=== PATIENT | male | born 1980 | race Caucasian/White ===

== ENCOUNTER 2024-09-22 11:30 | Emergency (ER) | payer MEDICAID, SELFPAY ==
[2024-09-22] VITALS (27 sets, daily range): BP systolic 116–134; BP diastolic 72–98; PULSE 71–107; RESP 14–21; TEMP 37.1; O2SAT 91–99
--- NOTE | ~2024-09-22 | US_ITS ---
EXAMINATION: US venous doppler UE RT DATE: 09/22/2024 14:09 INDICATION: Right upper limb swelling. TECHNIQUE: Grayscale ultrasound images without and with compression and Doppler ultrasound images of the right upper extremity veins were obtained. COMPARISON: None. FINDINGS: The visualized portions of the right internal jugular vein, radial vein, and ulnar vein are patent. T here is thrombus in the right subclavian, axillary, brachial, basilic, and cephalic veins. IMPRESSION: 1. Deep vein thrombosis involving the right subclavian, axillary, and brachial veins. 2. Superficial vein thrombosis involving the right basilic and cephalic veins. Reviewed, dictated and finalized at location A. [employer]
--- OUTSIDE RECORDS SUMMARY | 2024-09-22 14:24 | XMS_ITS | Continuity of Care Document ---
Author Organization [facility] ([facility]) Immunizations Effective Date Vaccine Code Vaccine Name Status Inform ant 10/04/2020 07:00:00 PDT 208 - completed C AIR
--- NOTE | 2024-09-22 14:26 | ED.GENADULT ---
HPI - General Adult General Chief complaint: Extremity Injury, Upper Stated complaint: swollen arm Time Seen by Provider: 09/22/24 13:24 History of Present Illness HPI narrative: Patient is a 44-year-old male who presents ER with swelling to the right arm. Worsening over last 5 days. Recently went fishing but denies any trauma or injury. He only fished for about an hour and was doing some side arm casting. No other trauma. Patient in town in [place] and has been here for several weeks as he is visiting his girlfriend. He drove here. No history of blood clots. Reports his arm swelling to the point that has difficulty bending at the elbow to put food in his mouth. Related Data Allergies Allergy/AdvReac Type Severity Reaction Status Date / Time No Known Allergies Allergy Verified 09/22/24 11:31 [facility] Past Medical History Medical History (Updated 09/22/24 @ 19:22 by Darin Patricio MD) Healthy adult male Surgical History Surgical History (Updated 09/22/24 @ 19:23 by Darin Patricio MD) No pertinent past surgical history Exam Narrative: GENERAL: Well-appearing, well-nourished, and in no acute distress. HEAD: Normocephalic, atraumatic. ENT: Mucous membranes moist. NECK: Supple. CHEST: Clear to auscultation. No respiratory distress. HEART: Regular rate and rhythm. Normal peripheral pulses. ABDOMEN: Soft, nontender, nondistended. EXTREMITIES: Normal range of motion. Edematous right upper extremity from shoulder to the hand with bulging veins near the deltoid. Normal left upper extremity.. SKIN: Warm, dry, no rash. NEURO: Alert and oriented x3. PSYCH: Normal mood and affect. Course Course Emergency Course: Discussed with Dr. Atkins at [facility]. Happy to accept but pt will need a surgery at [facility] for likely thoracic outlet issues. Discussed with Dr. Weston at [facility], feels patient is ok going to [facility] and he can see the patient in clinic for possible surgery 1 month after thrombolysis. His clinic number is [phone]. Patient accepted by the hospitalist Dr. Mccoy at [facility] at [id number]. Vital Signs Vital signs: Vital Signs Temperature 98.7 F 09/22/24 11:47 Pulse Rate 107 H 09/22/24 11:47 Respiratory Rate 19 09/22/24 11:47 Blood Pressure 134/98 H 09/22/24 11:47 Pulse Oximetry 99 09/22/24 11:47 Oxygen Delivery Room Air 09/22/24 11:47 Temperature 98.7 F 09/22/24 11:47 Pulse Rate 83 09/22/24 18:01 Respiratory Rate 16 09/22/24 18:01 Blood Pressure 125/83 09/22/24 18:01 Pulse Oximetry 94 09/22/24 18:15 Oxygen Delivery Room Air 09/22/24 11:47 Medical Decision Making Vital Signs Vital Signs: Vital Signs Temperature 98.7 F 09/22/24 11:47 Pulse Rate 107 H 09/22/24 11:47 Respiratory Rate 19 09/22/24 11:47 Blood Pressure 134/98 H 09/22/24 11:47 Pulse Oximetry 99 09/22/24 11:47 Oxygen Delivery Room Air 09/22/24 11:47 Temperature 98.7 F 09/22/24 11:47 Pulse Rate 83 09/22/24 18:01 Respiratory Rate 16 09/22/24 18:01 Blood Pressure 125/83 09/22/24 18:01 Pulse Oximetry 94 09/22/24 18:15 Oxygen Delivery Room Air 09/22/24 11:47 Lab Data 09/22/24 14:22 09/22/24 14:22 Labs: Lab Results 09/22/24 09/22/24 09/22/24 Range/Units 14:22 14:22 14:22 WBC 8.8 (4.5-10.0) K/mm3 RBC 4.47 L (4.6-6.20) M/mm3 Hgb 14.6 (14.0-18.0) g/dL Hct 43.1 (42.0-52.0) % MCV 96.4 (80-100) fl MCH 32.7 (26-34) pg MCHC 33.9 (32-36) g/dl RDW 12.6 (11.5-14.5) % Plt Count 310 (150-375) k/mm3 MPV 8.9 (7.4-10.4) fl Immature Gran % (Auto) 0.3 (0-0.5) % Neut % (Auto) 68.3 (45.5-73.1) % Lymph % (Auto) 15.5 L (18.3-44.2) % Schley % (Auto) 12.2 H (2.6-8.5) % Eos % (Auto) 3.2 (0-4.4) % Baso % (Auto) 0.5 (0.2-1.2) % Lymph # (Auto) 1.37 (0.9-3.2) K/mm3 Schley # (Auto) 1.1 H (0.1-0.6) K/mm3 Eos # (Auto) 0.3 (0-0.3) K/mm3 Baso # (Auto) 0.0 (0.0-0.1) K/mm3 Abs Immat Gran (auto) 0.03 (0.00-0.031) K/mm3 Absolute Neuts (auto) 6.0 (1.3-6.7) K/mm3 Absolute Nucleated RBC 0.000 (0.0-0.012) K/mm3 Nucleated RBC % 0.0 (0.0-0.2) % PT 12.7 (11.1-14.7) Seconds INR 0.9 APTT 28.9 (22.3-36.8) Seconds Sodium Cancelled 138 Potassium Cancelled 3.7 Chloride Cancelled Carbon Dioxide Anion Gap BUN Creatinine Estim Creat Clear Calc Estimated GFR Glucose Lactic Acid (0.7-2.0) mmol/L Calcium Total Bilirubin AST ALT Alkaline Phosphatase Total Creatine Kinase (55-170) U/L Total Protein Albumin 09/22/24 09/22/24 09/22/24 Range/Units 14:22 14:22 14:22 WBC (4.5-10.0) K/mm3 RBC (4.6-6.20) M/mm3 Hgb (14.0-18.0) g/dL Hct (42.0-52.0) % MCV (80-100) fl MCH (26-34) pg MCHC (32-36) g/dl RDW (11.5-14.5) % Plt Count (150-375) k/mm3 MPV (7.4-10.4) fl Immature Gran % (Auto) (0-0.5) % Neut % (Auto) (45.5-73.1) % Lymph % (Auto) (18.3-44.2) % Schley % (Auto) (2.6-8.5) % Eos % (Auto) (0-4.4) % Baso % (Auto) (0.2-1.2) % Lymph # (Auto) (0.9-3.2) K/mm3 Schley # (Auto) (0.1-0.6) K/mm3 Eos # (Auto) (0-0.3) K/mm3 Baso # (Auto) (0.0-0.1) K/mm3 Abs Immat Gran (auto) (0.00-0.031) K/mm3 Absolute Neuts (auto) (1.3-6.7) K/mm3 Absolute Nucleated RBC (0.0-0.012) K/mm3 Nucleated RBC % (0.0-0.2) % PT (11.1-14.7) Seconds INR APTT (22.3-36.8) Seconds Sodium Potassium Chloride 99 Carbon Dioxide Cancelled 28 Anion Gap Cancelled 11 BUN Cancelled Creatinine Estim Creat Clear Calc Estimated GFR Glucose Lactic Acid (0.7-2.0) mmol/L Calcium Total Bilirubin AST ALT Alkaline Phosphatase Total Creatine Kinase (55-170) U/L Total Protein Albumin 09/22/24 09/22/24 09/22/24 Range/Units 14:22 14:22 14:22 WBC (4.5-10.0) K/mm3 RBC (4.6-6.20) M/mm3 Hgb (14.0-18.0) g/dL Hct (42.0-52.0) % MCV (80-100) fl MCH (26-34) pg MCHC (32-36) g/dl RDW (11.5-14.5) % Plt Count (150-375) k/mm3 MPV (7.4-10.4) fl Immature Gran % (Auto) (0-0.5) % Neut % (Auto) (45.5-73.1) % Lymph % (Auto) (18.3-44.2) % Schley % (Auto) (2.6-8.5) % Eos % (Auto) (0-4.4) % Baso % (Auto) (0.2-1.2) % Lymph # (Auto) (0.9-3.2) K/mm3 Schley # (Auto) (0.1-0.6) K/mm3 Eos # (Auto) (0-0.3) K/mm3 Baso # (Auto) (0.0-0.1) K/mm3 Abs Immat Gran (auto) (0.00-0.031) K/mm3 Absolute Neuts (auto) (1.3-6.7) K/mm3 Absolute Nucleated RBC (0.0-0.012) K/mm3 Nucleated RBC % (0.0-0.2) % PT (11.1-14.7) Seconds INR APTT (22.3-36.8) Seconds Sodium Potassium Chloride Carbon Dioxide Anion Gap BUN 6 L Creatinine Cancelled 0.72 Estim Creat Clear Calc Cancelled 131 Estimated GFR Cancelled Glucose Lactic Acid (0.7-2.0) mmol/L Calcium Total Bilirubin AST ALT Alkaline Phosphatase Total Creatine Kinase (55-170) U/L Total Protein Albumin 09/22/24 09/22/24 09/22/24 Range/Units 14:22 14:22 14:22 WBC (4.5-10.0) K/mm3 RBC (4.6-6.20) M/mm3 Hgb (14.0-18.0) g/dL Hct (42.0-52.0) % MCV (80-100) fl MCH (26-34) pg MCHC (32-36) g/dl RDW (11.5-14.5) % Plt Count (150-375) k/mm3 MPV (7.4-10.4) fl Immature Gran % (Auto) (0-0.5) % Neut % (Auto) (45.5-73.1) % Lymph % (Auto) (18.3-44.2) % Schley % (Auto) (2.6-8.5) % Eos % (Auto) (0-4.4) % Baso % (Auto) (0.2-1.2) % Lymph # (Auto) (0.9-3.2) K/mm3 Schley # (Auto) (0.1-0.6) K/mm3 Eos # (Auto) (0-0.3) K/mm3 Baso # (Auto) (0.0-0.1) K/mm3 Abs Immat Gran (auto) (0.00-0.031) K/mm3 Absolute Neuts (auto) (1.3-6.7) K/mm3 Absolute Nucleated RBC (0.0-0.012) K/mm3 Nucleated RBC % (0.0-0.2) % PT (11.1-14.7) Seconds INR APTT (22.3-36.8) Seconds Sodium Potassium Chloride Carbon Dioxide Anion Gap BUN Creatinine Estim Creat Clear Calc Estimated GFR > 60 Glucose Cancelled 69 Lactic Acid 0.9 (0.7-2.0) mmol/L Calcium Cancelled 9.7 Total Bilirubin Cancelled AST ALT Alkaline Phosphatase Total Creatine Kinase (55-170) U/L Total Protein Albumin 09/22/24 09/22/24 09/22/24 Range/Units 14:22 14:22 14:22 WBC (4.5-10.0) K/mm3 RBC (4.6-6.20) M/mm3 Hgb (14.0-18.0) g/dL Hct (42.0-52.0) % MCV (80-100) fl MCH (26-34) pg MCHC (32-36) g/dl RDW (11.5-14.5) % Plt Count (150-375) k/mm3 MPV (7.4-10.4) fl Immature Gran % (Auto) (0-0.5) % Neut % (Auto) (45.5-73.1) % Lymph % (Auto) (18.3-44.2) % Schley % (Auto) (2.6-8.5) % Eos % (Auto) (0-4.4) % Baso % (Auto) (0.2-1.2) % Lymph # (Auto) (0.9-3.2) K/mm3 Schley # (Auto) (0.1-0.6) K/mm3 Eos # (Auto) (0-0.3) K/mm3 Baso # (Auto) (0.0-0.1) K/mm3 Abs Immat Gran (auto) (0.00-0.031) K/mm3 Absolute Neuts (auto) (1.3-6.7) K/mm3 Absolute Nucleated RBC (0.0-0.012) K/mm3 Nucleated RBC % (0.0-0.2) % PT (11.1-14.7) Seconds INR APTT (22.3-36.8) Seconds Sodium Potassium Chloride Carbon Dioxide Anion Gap BUN Creatinine Estim Creat Clear Calc Estimated GFR Glucose Lactic Acid (0.7-2.0) mmol/L Calcium Total Bilirubin 0.9 AST Cancelled 22 ALT Cancelled 16 Alkaline Phosphatase Cancelled Total Creatine Kinase (55-170) U/L Total Protein Albumin 09/22/24 09/22/24 09/22/24 Range/Units 14:22 14:22 14:22 WBC (4.5-10.0) K/mm3 RBC (4.6-6.20) M/mm3 Hgb (14.0-18.0) g/dL Hct (42.0-52.0) % MCV (80-100) fl MCH (26-34) pg MCHC (32-36) g/dl RDW (11.5-14.5) % Plt Count (150-375) k/mm3 MPV (7.4-10.4) fl Immature Gran % (Auto) (0-0.5) % Neut % (Auto) (45.5-73.1) % Lymph % (Auto) (18.3-44.2) % Schley % (Auto) (2.6-8.5) % Eos % (Auto) (0-4.4) % Baso % (Auto) (0.2-1.2) % Lymph # (Auto) (0.9-3.2) K/mm3 Schley # (Auto) (0.1-0.6) K/mm3 Eos # (Auto) (0-0.3) K/mm3 Baso # (Auto) (0.0-0.1) K/mm3 Abs Immat Gran (auto) (0.00-0.031) K/mm3 Absolute Neuts (auto) (1.3-6.7) K/mm3 Absolute Nucleated RBC (0.0-0.012) K/mm3 Nucleated RBC % (0.0-0.2) % PT (11.1-14.7) Seconds INR APTT (22.3-36.8) Seconds Sodium Potassium Chloride Carbon Dioxide Anion Gap BUN Creatinine Estim Creat Clear Calc Estimated GFR Glucose Lactic Acid (0.7-2.0) mmol/L Calcium Total Bilirubin AST ALT Alkaline Phosphatase 86 Total Creatine Kinase 158 (55-170) U/L Total Protein Cancelled 8.0 Albumin Cancelled 4.6 Imaging Data Radiologist's impression: ITS Impressions Venous Doppler Study 09/22/24 14:15 IMPRESSION: 1. Deep vein thrombosis involving the right subclavian, axillary, and brachial veins. 2. Superficial vein thrombosis involving the right basilic and cephalic veins. Critical Care Time Critical Care Time Critical Care Time: Yes Total Critical Care Time: 35 Discharge Plan Discharge Clinical Impression: Deep vein thrombosis (DVT) Patient Disposition: Acute Care Hospital Condition: Stable Patient Language: [place] Follow-up/Referrals: UNKNOWN,DOCTOR [Primary Care Provider] -
[2024-09-22 14:39] LABS: Basophils Percent Auto 0.5 % (0.2-1.2); Eosinophils Absolute Auto 0.3 K/mm3 (0-0.3); Eosinophils Percent Auto 3.2 % (0-4.4); Hematocrit 43.1 % (42.0-52.0); Hemoglobin 14.6 g/dL (14.0-18.0); Immature Granulocyte Absolute 0.03 K/mm3 (0.00-0.031); Immature Granulocyte Percent A 0.3 % (0-0.5); Lymphocytes Absolute Auto 1.37 K/mm3 (0.9-3.2); Lymphocytes Percent Auto 15.5 % (18.3-44.2); Mean Corpuscular HGB Conc 33.9 g/dl (32-36); Mean Corpuscular Hemoglobin 32.7 pg (26-34); Mean Corpuscular Volume 96.4 fl (80-100); Mean Platelet Volume 8.9 fl (7.4-10.4); Monocytes Absolute Auto 1.1 K/mm3 (0.1-0.6); Monocytes Percent Auto 12.2 % (2.6-8.5); Neutrophils Percent Auto 68.3 % (45.5-73.1); Platelet Count Result 310 k/mm3 (150-375); Red Blood Count 4.47 M/mm3 (4.6-6.20); Red Cell Distribution Width 12.6 % (11.5-14.5); White Blood Count 8.8 K/mm3 (4.5-10.0)
[2024-09-22] MEDS: HEPARIN SOD/D5W 100 UNITS/ML 25,000 UNITS/250 ML BAG 15 UNITS IV CONT (14:51)
[2024-09-22] MEDS: HEPARIN SODIUM 5,000 UNITS/ML VIAL 7000 UNITS IV PUSH (14:53)
[2024-09-22 14:54] LABS: Lactic Acid Reflex 0.9 mmol/L (0.7-2.0)
[2024-09-22 14:58] LABS: INR 0.9; Partial Thromboplastin Time 28.9 Seconds (22.3-36.8); Prothrombin Time 12.7 Seconds (11.1-14.7)
[2024-09-22 15:01] LABS: Alanine Aminotransferase 16 U/L (6-50); Albumin Level 4.6 g/dL (3.5-5.1); Alkaline Phosphatase 86 U/L (38-126); Anion Gap 11 mmol/L (4-12); Aspartate Amino Transferase 22 U/L (17-59); Bilirubin,Total 0.9 mg/dL (0.2-1.3); Blood Urea Nitrogen 6 mg/dL (9-20); Calcium 9.7 mg/dL (8.4-10.2); Carbon Dioxide 28 mmol/L (22-30); Chloride 99 mmol/L (98-107); Creatine Kinase 158 U/L (55-170); Estimated CRCL calculation 131 ml/min; Estimated Glomerular Filt Rate > 60; Glucose 69 mg/dL (65-110); Potassium 3.7 mmol/L (3.4-5.0); Sodium 138 mmol/L (137-145)
--- NOTE | 2024-09-22 21:22 | PC.NURSE ---
2029: Kacey from [facility] transfer states pt has a bed assignment at [facility] in [place]. 2035: This RN spoke with Carlo from [facility] in [place] and gave report on pt. Pt was assigned to room C139, Bed 1. Report was called out to the number [phone].
[2024-09-22 21:31] LABS: Prothrombin Time 13.7 Seconds (11.1-14.7)
[2024-09-22 21:33] LABS: Partial Thromboplastin Time 70.4 Seconds (22.3-36.8)
--- NOTE | 2024-09-22 21:40 | PC.NURSE ---
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
== END 2024-09-22 21:44 | disposition short-term general hospital (02) ==
PROVIDERS: Emergency Provider Emergency Medicine
DX: I82.621 Acute embolism and thrombosis of deep veins of right upper extremity (principal); I82.611 Acute embolism and thrombosis of superficial veins of right upper extremity
CPT/HCPCS: 36415; 80053; 82550; 83605; 85025; 85610; 85730; 93971; 96374; 99285; J1644